=== PATIENT | male | born 1940 | race Caucasian/White ===

== ENCOUNTER 2019-02-27 23:20 | Emergency (ER) | payer OTHER ==
[~2019-02-27] VITALS: Ht 152.4 cm; Wt 62.6 kg
[2019-02-27 23:25] VITALS: BP_SYST 145
--- NOTE | 2019-02-27 23:25 | NUR ---
Patient triaged and placed in waiting room. VSS and patient appears in no acute distress at this time. Accompanied by self, awaiting available bed, and MD notified of need for MSE.
--- NOTE | 2019-02-28 02:59 | NUR ---
Patient to ER chair to gown for evaluation. Side rails up. Report given to Patricia SANTIAGO.
--- NOTE | 2019-02-28 03:16 | NUR ---
ER at bedside examining patient.
[2019-02-28] MEDS ORDERED: ACETAMINOPHEN 325 MG TABLET PO ONE (03:30)
--- NOTE | 2019-02-28 03:55 | NUR ---
Patient given written and verbal discharge instructions and verbalizes understanding. ER MD discussed with patient the results and treatment provided. Patient in stable condition. ID arm band removed. Rx of ibuprofen and norco given. Patient educated on pain management and to follow up with PMD. Pain Scale 4/10. Opportunity for questions provided and answered. Medication side effect fact sheet provided.
[2019-02-28 03:56] VITALS: BP_SYST 139
== END 2019-02-28 03:55 | disposition home or self-care (01) ==
LOC: SED 23:20
DX: S62.604A Fracture of unspecified phalanx of right ring finger, initial encounter for closed fracture (principal); W11.XXXA Fall on and from ladder, initial encounter; Y93.89 Activity, other specified; Y92.098 Other place in other non-institutional residence as the place of occurrence of the external cause; Y99.8 Other external cause status
CPT/HCPCS: 73140-TC; 99283